=== PATIENT | male | born 2000 ===

== ENCOUNTER 2022-03-07 10:44 | Emergency (ER) | payer SELFPAY ==
[2022-03-07 11:21] VITALS: BP 145/82
--- NOTE | 2022-03-07 16:41 | Event Note ---
ED Screening Note ED Screening Note: Right upper quadrant abdominal pain x1 week. No nausea vomit General: Nontoxic appearing no acute distress Cardiac: Regular rate, normal heart sounds Respiratory: Normal lung sounds bilaterally no use of independent trader muscles GI/-normal sounds, tender no guarding Musculoskeletal-normal inspection full range of motion Neuro-alert oriented x4. In the setting of a significantly high volume and record number of patients presenting to the emergency department and the fact that we have a limited space to see patients we have implemented the provider in triage protocol this allows an expedited initial exam of patients that might otherwise have left without being seen or who would wait longer than usual to be seen by provider. I interviewed the patient and performed a limited physical exam. This patient is a pulled from the waiting room to triage room for an initial assessment of adrenal studies and then returned to the waiting room pending results of the studies. The ultimate final evaluation and disposition may be performed by another provider depending on room and provider availability.
== END 2022-03-07 21:45 | disposition left against medical advice (07) ==
LOC: ED 10:44
DX: R10.11 Right upper quadrant pain (principal); Z53.21 Procedure and treatment not carried out due to patient leaving prior to being seen by health care provider